=== PATIENT | male | born 1980 | race Caucasian/White ===

== ENCOUNTER 2018-02-13 20:40 | Emergency (ER) | payer SELFPAY ==
[~2018-02-13] VITALS: Ht 180.3 cm; Wt 70.8 kg
[2018-02-13 20:53] VITALS: BP 139/96
[2018-02-13] MEDS ORDERED: LORAZEPAM 1 MG TABLET PO STA (21:11)
[2018-02-13] MEDS ORDERED: LORAZEPAM 1 MG TABLET ONE (21:16)
[2018-02-13] MEDS ORDERED: IBUPROFEN 400 MG TABLET ONE (21:17)
[2018-02-13] MEDS ORDERED: ONDANSETRON 4 MG TAB.RAPDIS ONE (21:17)
[2018-02-13] MEDS ORDERED: ONDANSETRON 4 MG TAB.RAPDIS SL ONE (21:30)
[2018-02-13] MEDS ORDERED: IBUPROFEN 400 MG TABLET PO ONE (21:30)
--- NOTE | 2018-02-13 21:39 | NUR ---
PATIENT LEFT ED WITHOUT RECEIVING DC PAPERWORK. MADE AWARE. PT LAST SEEN WALKING OUT AT 2137 WITH STEADY GAIT NOTED.
== END 2018-02-13 21:42 | disposition home or self-care (01) ==
LOC: ER 20:42
DX: F41.9 Anxiety disorder, unspecified (principal); F19.10 Other psychoactive substance abuse, uncomplicated; Z60.2 Problems related to living alone
CPT/HCPCS: 99284; A4606; A6402; Q0162; Z7610